=== PATIENT | male | born 1970 | race Caucasian/White ===

== ENCOUNTER 2018-11-17 06:47 | Day surgery (SDC) | payer BC ==
[~2018-11-17] VITALS: Ht 182.9 cm; Wt 102.1 kg
[~2018-11-17 06:47] MED LIST: AZEL1SPR3 NARES; CETI10CH PO; D32000TA2 PO; FLON1SPR; NS 1,000 ML IV ONE; OMEP20CA3 PO
[2018-11-17] MEDS ORDERED: PROPOFOL 200 MG/20 ML VIAL As Ordered ONE ×2 (07:04→07:58)
[2018-11-17] MEDS ORDERED: LIDOCAINE 2% INJ 100 MG/5 ML SDV (FOR ANES.) As Ordered ONE (07:05)
--- NOTE | 2018-11-17 07:46 | ROOR ---
Patient Name: Lincoln Peña Procedure Date: 11/17/2018 7:26 AM Date of : 1970 Age: 48 Room: [facility] Gender: Male Note Status: Finalized Procedure: Upper Endoscopy + Biopsies Indications: Heartburn, Follow-up of Roca's esophagus Providers: Cash Carson MD Referring MD: ORIANA BECKMAN JR, MD Requesting Provider: Medicines: Monitored Anesthesia Care Complications: No immediate complications. Procedure: Pre-Anesthesia Assessment: - The heart rate, respiratory rate, oxygen saturations, blood pressure, adequacy of pulmonary ventilation, and response to care were monitored throughout the procedure. The Endoscope was introduced through the mouth, and advanced to the second part of duodenum. The upper GI endoscopy was accomplished without difficulty. The patient tolerated the procedure well. Findings: The Z-line was irregular and was found 40 cm from the incisors. Multiple biopsies were obtained with cold forceps for evaluation to rule out Roca's Esophagus randomly at the gastroesophageal junction. A small hiatal hernia was present. No other significant abnormalities were identified in a careful examination of the stomach. The exam of the duodenum was otherwise normal. Impression: - Z-line irregular, 40 cm from the incisors. - Small hiatal hernia. - Multiple biopsies were obtained at the gastroesophageal junction. - The examination was otherwise normal. Recommendation: - Patient has a contact number available for emergencies. The signs and symptoms of potential delayed complications were discussed with the patient. Return to normal activities tomorrow. Written discharge instructions were provided to the patient. - High fiber diet. - Discharge patient to home. - Follow an antireflux regimen. - Continue present medications. - Await pathology results. - Telephone GI clinic for pathology results in 1 week. - Return to referring physician. - The findings and recommendations were discussed with the patient's family. Cash Carson MD Cash Carson MD 11/17/2018 7:45:40 AM Electronically signed by Cash Carson MD Number of Addenda: 0 Note Initiated On: 11/17/2018 7:26 AM Estimated Blood Loss: Estimated blood loss: none.
[2018-11-17] MEDS ORDERED: fentaNYL 100 MCG/2 ML INJECTION (J3010) As Ordered ONE (07:48)
--- NOTE | 2018-11-17 08:08 | ROOR ---
Patient Name: Lincoln Peña Procedure Date: 11/17/2018 7:27 AM Date of : 1970 Age: 48 Room: [facility] Gender: Male Note Status: Finalized Procedure: Total Colonoscopy to Cecum + Cold Snare Polypectomy Indications: Screening for colorectal malignant neoplasm Providers: Cash Carson MD Referring MD: ORIANA BECKMAN JR, MD Requesting Provider: Medicines: Monitored Anesthesia Care Complications: No immediate complications. Procedure: Pre-Anesthesia Assessment: - The heart rate, respiratory rate, oxygen saturations, blood pressure, adequacy of pulmonary ventilation, and response to care were monitored throughout the procedure. The Colonoscope was introduced through the anus and advanced to the cecum, identified by appendiceal orifice and ileocecal valve. The colonoscopy was performed without difficulty. The patient tolerated the procedure well. The quality of the bowel preparation was excellent. Findings: The perianal and digital rectal examinations were normal. A small polyp was found in the rectum. The polyp was sessile. The polyp was removed with a cold snare. Resection and retrieval were complete. The exam was otherwise without abnormality on direct and retroflexion views. Impression: - One small polyp in the rectum, removed with a cold snare. Resected and retrieved. - The examination was otherwise normal on direct and retroflexion views. - The exam was otherwise normal to the cecum. Recommendation: - Patient has a contact number available for emergencies. The signs and symptoms of potential delayed complications were discussed with the patient. Return to normal activities tomorrow. Written discharge instructions were provided to the patient. - High fiber diet. - Discharge patient to home. - Continue present medications. - Await pathology results. - Telephone GI clinic for pathology results in 1 week. - Repeat colonoscopy in 10 years for screening purposes. - Return to referring physician. - The findings and recommendations were discussed with the patient's family. Cash Carson MD Cash Carson MD 11/17/2018 8:08:00 AM Electronically signed by Cash Carson MD Number of Addenda: 0 Note Initiated On: 11/17/2018 7:27 AM Estimated Blood Loss: Estimated blood loss: none.
[2018-11-17 08:35] VITALS: BP 126/85
== END 2018-11-17 08:36 | disposition home or self-care (01) ==
LOC: M OPP 06:47
PROVIDERS: ATTEND Internal Medicine Gastroenterology
DX: D12.8 Benign neoplasm of rectum (principal); K22.8 Other specified diseases of esophagus; K44.9 Diaphragmatic hernia without obstruction or gangrene; R12 Heartburn; Z12.11 Encounter for screening for malignant neoplasm of colon
CPT/HCPCS: 43239; 45385; 88305; J3010

== ENCOUNTER → 2020-11-19 | Outpatient (CLI) | payer BC ==
[~2020-11-19] MED LIST changes: -NS 1,000 ML IV ONE; +OMEP1CAP73 PO; -OMEP20CA3 PO
--- NOTE | 2020-11-19 11:31 | REP ---
INDICATION: PAIN. COMPARISON: None. TECHNIQUE: Four views FINDINGS: Postoperative changes are seen involving the distal aspect of the 1st metatarsal from previous bunionectomy and internal fixation pin placement. The tip of the pin does not breach the joint space. There is narrowing of the 1st metatarsophalangeal joint with slight marginal osteophytosis. The remainder of the joint spaces are symmetric and relatively well maintained. There is no acute fracture.. IMPRESSION: Chronic changes as described above. <Electronically signed by Terrell Slaughter > 11/19/20 [id number]
== END ==
LOC: M WUC 10:09
PROVIDERS: ATTEND Physician Assistant
DX: M79.672 Pain in left foot (principal); M25.772 Osteophyte, left ankle

== ENCOUNTER → 2020-11-28 | Outpatient (CLI) | payer BC ==
--- NOTE | 2020-11-28 20:13 | REPVR ---
PROCEDURE INFORMATION: Exam: CT Maxillofacial Without Contrast, Sinus Exam date and time: 11/28/2020 10:53 AM Age: 50 years old Clinical indication: Sinusitis; Chronic TECHNIQUE: Imaging protocol: CT Maxillofacial without contrast. Focus on the sinuses. Radiation optimization: All CT scans at this facility use at least one of these dose optimization techniques: automated exposure control; mA and/or kV adjustment per patient size (includes targeted exams where dose is matched to clinical indication); or iterative reconstruction. COMPARISON: No relevant prior studies available. FINDINGS: Frontal sinuses: Normal. No air-fluid levels. Ethmoid air cells: Normal. No air-fluid levels. Sphenoid sinuses: Normal. No air-fluid levels. Maxillary sinuses: Mucosal thickening of the bilateral maxillary sinuses. Mucosal thickening with the stenosis at the infundibulum of bilateral maxillary sinuses, left greater than right. S shaped deviation of the nasal septum with a small bony spur to the right nasal cavity. Nasal cavity/Septum: See "Maxillary sinuses" finding. Orbital cavity: Orbits are normal. Globes are unremarkable. Bones/joints: Unremarkable. Soft tissues: Unremarkable. IMPRESSION: Mucosal thickening of bilateral maxillary sinuses with stenosis at the infundibulum of bilateral outflow tracks. S shaped bony deviation of the nasal septum with small bony spur to the right nasal cavity. Electronically signed by: Luis Franks On 11/28/2020 20:12:33 PM
== END ==
LOC: M PLAIMG 10:33
PROVIDERS: ATTEND Specialist
DX: J01.01 Acute recurrent maxillary sinusitis (principal); J34.2 Deviated nasal septum; J31.0 Chronic rhinitis; J34.89 Other specified disorders of nose and nasal sinuses

== ENCOUNTER → 2023-07-21 | Outpatient (CLI) | payer BC | LOC: M WUC 11:53 | PROVIDERS: ATTEND Nurse Practitioner Family | DX: M79.644 Pain in right finger(s) (principal); M79.89 Other specified soft tissue disorders ==

== ENCOUNTER → 2023-12-17 | Outpatient (CLI) | payer BC | LOC: M SLEEP HO 11:38 | PROVIDERS: ATTEND Nurse Practitioner Family | DX: G47.8 Other sleep disorders (principal) ==

== ENCOUNTER → 2024-04-26 | Outpatient (CLI) | payer BC ==
[~2024-04-26] MED LIST changes: +METHACHOLINE KIT (6 VIAL.NEB PREMIX) INH ONE
== END ==
LOC: M CARPUL 07:42
PROVIDERS: ATTEND Internal Medicine Pulmonary Disease
DX: R05.9 Cough, unspecified (principal)